=== PATIENT | female | born 1995 | race Caucasian/White ===

== ENCOUNTER 2018-09-05 23:49 | Inpatient (IN) | payer OTHER ==
[2018-09-06] MEDS: ONDANSETRON 4 MG INJ IV ×2 (00:33→07:44)
[2018-09-06] MEDS: morphine 4 MG/ML VIAL IV (00:36)
[2018-09-06] MEDS: SOD CHLORIDE 0.9% 1,000 ML IV (00:36)
[2018-09-06 00:48] LABS: ADD MAN DIFF? NO
[2018-09-06 00:50] LABS: BASOPHILS % 0.3 % (0.0-2.0); EOSINOPHILS # 0.1 10^3/ul (0.0-0.5); EOSINOPHILS % 0.9 % (0.0-7.0); HEMATOCRIT 39.3 % (37.0-47.0); HEMOGLOBIN 13.3 g/dl (12.0-16.0); LYMPHOCYTES # 1.5 10^3/ul (0.8-2.9); LYMPHOCYTES % 11.3 % (15.0-51.0); MEAN CORPUSCULAR HGB CONC 33.8 g/dl (32.0-37.0); MEAN CORPUSCULAR VOLUME 85.8 fl (82.0-101.0); MEAN PLATELET VOLUME 12.5 fl (7.4-10.4); MONOCYTE # 1.1 10^3/ul (0.3-0.9); MONOCYTES % 7.7 % (0.0-11.0); NEUTROPHIL # 10.8 10^3/ul (1.6-7.5); NEUTROPHILS % 79.5 % (39.0-77.0); RED BLOOD COUNT 4.58 10^6/ul (4.20-5.40); RED CELL DISTRIBUTION WIDTH 12.1 % (11.5-14.5)
[2018-09-06 01:00] LABS: PLATELET COUNT 285 10^3/UL (140-415)
[2018-09-06 01:00] LABS: WHITE BLOOD COUNT 13.6 10^3/ul (4.8-10.8)
[2018-09-06] MEDS: METOCLOPRAMIDE 10 MG INJ IV (01:20)
[2018-09-06] MEDS: HYDROmorphONE 2 MG/ML SYG IV ×4 (01:21→19:57)
[2018-09-06 01:25] LABS: ALANINE AMINOTRANSFERASE 21 IU/L (13-69); ALBUMIN 4.7 g/dl (3.3-4.9); ALBUMIN/GLOBULIN RATIO 1.56; ALKALINE PHOSPHATASE 78 IU/L (42-121); ANION GAP 17 (5-13); ASPARTATE AMINO TRANSFERASE 26 IU/L (15-46); BILIRUBIN,INDIRECT 0.8 mg/dl (0-1.1); BILIRUBIN,TOTAL 0.8 mg/dl (0.2-1.3); BLOOD UREA NITROGEN 14 mg/dl (7-20); CALCIUM 9.6 mg/dl (8.4-10.2); CARBON DIOXIDE 23 mmol/L (21-31); CHLORIDE 99 mmol/L (97-110); CREATININE 0.63 mg/dl (0.44-1.00); Estimated GFR > 60 mL/min (>60); GLUCOSE 141 mg/dl (70-220); LIPASE 39 U/L (23-300); POTASSIUM 3.4 mmol/L (3.5-5.1); SODIUM 139 mmol/L (135-144); TOTAL PROTEIN 7.7 g/dl (6.1-8.1)
[2018-09-06] MEDS: IOHEXOL 300MG/ML 150 ML BTL (01:58)
[2018-09-06] MEDS: SOD CHLORIDE 0.9% 100 ML (01:58)
[2018-09-06 03:44] LABS: ADD UMIC YES; UR ASCORBIC ACID NEGATIVE (NEGATIVE); UR BILIRUBIN (Dip) NEGATIVE (NEGATIVE); UR BLOOD (Dip) 1+ mg/dL (NEGATIVE); UR CLARITY CLEAR (CLEAR); UR COLOR STRAW (YELLOW); UR GLUCOSE (Dip) NEGATIVE (NEGATIVE); UR KETONES (Dip) 2+ mg/dL (NEGATIVE); UR LEUKOCYTE ESTERASE (Dip) NEGATIVE Leu/ul (NEGATIVE); UR NITRITE (Dip) NEGATIVE (NEGATIVE); UR RBC 1 /HPF (0-5); UR SPECIFIC GRAVITY (Dip) 1.029 (1.003-1.030); UR TOTAL PROTEIN (Dip) NEGATIVE (NEGATIVE); UR UROBILINOGEN (Dip) NEGATIVE (NEGATIVE); UR WBC 1 /HPF (0-5)
[2018-09-06] MEDS ORDERED: PHENYLephrine (100 MCG/ML) 5ML SYG (07:00)
[2018-09-06] MEDS ORDERED: ROCURONIUM 50 MG INJ ×2 (07:00→22:20)
[2018-09-06] MEDS ORDERED: LACTATED RINGER'S 1,000 ML IV (19:37)
[2018-09-06] MEDS: LACTATED RINGER'S 1,000 ML IV ×2 (19:58→20:00)
[2018-09-06 20:51] LABS: ADD MAN DIFF? NO
[2018-09-06 20:53] LABS: WHITE BLOOD COUNT 12.7 10^3/ul (4.8-10.8)
[2018-09-06 20:53] LABS: BASOPHILS % 0.2 % (0.0-2.0); EOSINOPHILS # 0.1 10^3/ul (0.0-0.5); EOSINOPHILS % 0.9 % (0.0-7.0); HEMATOCRIT 35.7 % (37.0-47.0); HEMOGLOBIN 11.8 g/dl (12.0-16.0); LYMPHOCYTES # 2.4 10^3/ul (0.8-2.9); LYMPHOCYTES % 18.6 % (15.0-51.0); MEAN CORPUSCULAR HEMOGLOBIN 29.6 pg (29.0-33.0); MEAN CORPUSCULAR HGB CONC 33.1 g/dl (32.0-37.0); MEAN CORPUSCULAR VOLUME 89.7 fl (82.0-101.0); MEAN PLATELET VOLUME 12.6 fl (7.4-10.4); MONOCYTES % 7.7 % (0.0-11.0); NEUTROPHIL # 9.2 10^3/ul (1.6-7.5); NEUTROPHILS % 72.2 % (39.0-77.0); PLATELET COUNT 243 10^3/UL (140-415); RED BLOOD COUNT 3.98 10^6/ul (4.20-5.40); RED CELL DISTRIBUTION WIDTH 12.3 % (11.5-14.5)
[2018-09-06] MEDS: DEXTROSE 5%-LR 1,000 ML IV (21:52)
[2018-09-06] MEDS ORDERED: LIDOCAINE 2% (SDV) 5 ML INJ (22:20)
[2018-09-06] MEDS ORDERED: PROPOFOL 20 ML (22:20)
[2018-09-06] MEDS ORDERED: MIDAZOLAM 1 MG/ML 2 ML INJ (22:20)
[2018-09-06] MEDS ORDERED: ROPIVACAINE 0.5 % 30 ML VIAL (22:24)
[2018-09-06] MEDS ORDERED: SILVER NITRATE SWAB (22:35)
[2018-09-06] MEDS ORDERED: CEFAZOLIN 1 GM INJ (23:07)
[2018-09-06] MEDS ORDERED: ONDANSETRON 4 MG INJ (23:07)
[2018-09-06] MEDS ORDERED: DEXAMETHASONE 4 MG/ML 1 ML INJ (23:07)
[2018-09-07] MEDS ORDERED: FENTAnyl 50 MCG/ML VIAL (00:54)
[2018-09-07] MEDS ORDERED: PHENYLephrine (100 MCG/ML) 5ML SYG (01:03)
[2018-09-07] MEDS ORDERED: SUGAMMADEX SODIUM 200 MG/2 ML VIAL IV (01:10)
[2018-09-07] MEDS: SILVER NITRATE SWAB (01:20)
[2018-09-07] MEDS ORDERED: HYDROmorphONE 1 MG/5 ML IV SYRINGE IV (01:30)
[2018-09-07] MEDS: HYDROmorphONE 1 MG/5 ML IV SYRINGE IV (01:43)
[2018-09-07] MEDS: ONDANSETRON 4 MG INJ IV (01:43)
[2018-09-07] MEDS ORDERED: METOCLOPRAMIDE 10 MG INJ IV (02:30)
[2018-09-07] MEDS: LACTATED RINGER'S 1,000 ML IV ×3 (02:59→20:21)
[2018-09-07] MEDS: HYDROCODONE/APAP (5/325) TAB PO ×2 (11:23→20:22)
[2018-09-08] MEDS: IBUPROFEN 600 MG TAB PO ×2 (03:45→16:31)
[2018-09-08] MEDS: LACTATED RINGER'S 1,000 ML IV ×2 (08:21→18:21)
[2018-09-08] MEDS: HYDROCODONE/APAP (5/325) TAB PO (11:27)
[2018-09-09] MEDS: LACTATED RINGER'S 1,000 ML IV (01:33)
== END 2018-09-09 14:05 | disposition home or self-care (01) | DRG 743 ==
LOC: FTE 23:49 → MS1 09-06 05:11
PROC: 0US04ZZ Reposition Right Ovary, Percutaneous Endoscopic Approach (ICD-10-PCS; principal; 2018-09-06 22:18)
PROC: 0UB04ZZ Excision of Right Ovary, Percutaneous Endoscopic Approach (ICD-10-PCS; 2018-09-06 22:18)
PROC: 0UB54ZZ Excision of Right Fallopian Tube, Percutaneous Endoscopic Approach (ICD-10-PCS; 2018-09-06 22:18)
DX: N83.511 Torsion of right ovary and ovarian pedicle (principal); E28.2 Polycystic ovarian syndrome; N83.8 Other noninflammatory disorders of ovary, fallopian tube and broad ligament
CPT/HCPCS: 36415; 72197; 74177; 74183; 76856; 80053; 81001; 83690; 84703; 85025; 86850; 86900; 86901; 88305; 96361; 96374; 96375; 99285-25